=== PATIENT | male | born 1995 | race Caucasian/White ===

== ENCOUNTER → 2019-02-23 | Outpatient (CLI) | payer SELFPAY | LOC: COL.ER 21:55 | DX: Z02.83 Encounter for blood-alcohol and blood-drug test (principal) ==

== ENCOUNTER → 2019-02-23 | Outpatient (REF) | LOC: COL.ER 21:50 | DX: Z02.83 Encounter for blood-alcohol and blood-drug test (principal) ==

== ENCOUNTER 2019-04-30 17:45 | Emergency (ER) | payer BC ==
[~2019-04-30] VITALS: Ht 185.4 cm; Wt 81.8 kg
[2019-04-30 18:02] VITALS: BP 131/81; PULSE 108; TEMP 97.7
== END 2019-04-30 19:42 | disposition home or self-care (01) ==
LOC: COL.ER 17:45
DX: S60.222A Contusion of left hand, initial encounter (principal); F17.210 Nicotine dependence, cigarettes, uncomplicated; Y08.02XA Assault by strike by baseball bat, initial encounter

== ENCOUNTER 2019-05-10 00:37 | Emergency (ER) | payer BC ==
[~2019-05-10] VITALS: Ht 185.4 cm; Wt 81.8 kg
[2019-05-10 00:42] VITALS: BP 137/94; TEMP 98.3
[2019-05-10] MEDS ORDERED: NAPROXEN 3375 MG/TAB PO (01:21)
[2019-05-10 01:34] VITALS: PULSE 95
== END 2019-05-10 01:36 | disposition home or self-care (01) ==
LOC: COL.ER 00:37
DX: S60.222A Contusion of left hand, initial encounter (principal); F17.210 Nicotine dependence, cigarettes, uncomplicated; W21.03XA Struck by baseball, initial encounter